=== PATIENT | male | born 1960 | race Caucasian/White ===

== ENCOUNTER 2017-10-14 21:15 | Emergency (ER) | payer BC ==
[2017-10-14 21:29] VITALS: RESP 18
[2017-10-14] MEDS ORDERED: HYDROmorphone 0.5 MG/0.5 ML SYRINGE IVP STA (22:56)
[2017-10-14] MEDS ORDERED: ONDANSETRON 4 MG/2 ML VIAL IVP STA (22:56)
[2017-10-14] MEDS ORDERED: SODIUM CHLORIDE 0.9% 500 ML IV STA (22:56)
--- NOTE | 2017-10-14 23:01 | ED ---
General Adult HPI - General Chief complaint: Abdominal Pain Stated complaint: Abd Pain Time Seen by Provider: 10/14/17 22:22 Source: patient, family, RN notes reviewed Mode of arrival: ambulatory Limitations: no limitations - History of Present Illness Initial comments: Chief complaint history of present illness is a 57-year-old male with on-again off-again discomfort from the left flank to the left groin area. Worse today. He gets up walks around feels nauseated no vomiting become somewhat diaphoretic. The pain goes away. - Related Data Home Medications Medication Instructions Recorded Confirmed Difluprednate [Durezol] 1 drop RIGHT EYE QID 10/14/17 10/14/17 Levothyroxine Sodium [Synthroid] 100 mcg PO DAILY 10/14/17 10/14/17 Vitamin A Acetate [Vitamin A] 10,000 unit PO DAILY 10/14/17 10/14/17 acetaZOLAMIDE [Diamox Sequels] 500 mg PO BID 10/14/17 10/14/17 Previous Rx's Medication Instructions Recorded Hydrocodone/Acetaminophen [Oak 1 each PO Q6HR PRN #10 tab 10/15/17 5-325] Ondansetron Odt [Zofran Odt] 4 mg PO Q8HR PRN #10 tab 10/15/17 Potassium Chloride ER [K-Dur 10] 10 meq PO DAILY #30 tab 10/15/17 Tamsulosin [Flomax] 0.4 mg PO DAILY #14 cap 10/15/17 Allergies Allergy/AdvReac Type Severity Reaction Status Date / Time No Known Allergies Allergy Verified 10/14/17 21:29 Review of Systems ROS Statement: Those systems with pertinent positive or pertinent negative responses have been documented in the HPI. review of systems no headache or visual acuity changes no shortness of breath or chest pain. He states his nausea and sweats when he has acute pain from the left flank to the left groin area. Decreased frequency of urination and decreased urine output lately. No neuro deficits. All systems are reviewed. Past medical problems hyperthyroidism treated with radiation. Surgeries include appendectomy and cataracts. Family history: Cancer and skin cancer. Patient was again reminded he should have colonoscopies. Patient denies ALLERGIES quit smoking 5 years ago drinks alcohol socially. ROS Other: All systems not noted in ROS Statement are negative. Past Medical History Past Medical History: Thyroid Disorder History of Any Multi-Drug Resistant Organisms: None Reported Past Surgical History: Appendectomy Additional Past Surgical History / Comment(s): RADIATION TO THYROID Past Psychological History: No Psychological Hx Reported Smoking Status: Former smoker Past Alcohol Use History: None Reported Past Drug Use History: None Reported General Exam - General Exam Comments Initial Comments: General: The patient is awake and alert, left flank pain radiating to the left groin and testicular area. With nausea and sweats at times. No signs shows temperature 97.5 pulse 61 respiratory rate 18 pulse ox R percent room air blood pressure 147 /73 Eye: Pupils are equal, round and reactive to light, extra-ocular movements are intact ; there is normal conjunctiva bilaterally. No signs of icterus. evidence of cataract surgery. Ears, nose, mouth and throat: There are moist mucous membranes Neck: The neck is supple, Cardiovascular: There is a regular rate and rhythm. No murmur, rub or gallop is appreciated. Respiratory: Lungs are clear to auscultation, respirations are non-labored, breath sounds are equal. No wheezes, stridor, rales, or rhonchi. Gastrointestinal: Soft, non-distended, non-tender abdomen without masses or organomegaly noted. There is no rebound or guarding present. left CVA tenderness Back: left CVA tenderness Musculoskeletal:normal upper and lower extremities. Limitations: no limitations Course Vital Signs 10/14/17 10/14/17 21:25 23:56 Temperature 97.5 F L Pulse Rate 61 75 Respiratory 18 18 Rate Blood Pressure 147/73 112/61 O2 Sat by Pulse 100 96 Oximetry Medical Decision Making - Medical Decision Making Medical decision-making. The patient is here because of symptoms suggestive of a left ureterolithiasis. The patient's labs show white count 10.1 hemoglobin 16 hematocrit of 49. Potassium is low at 3.1. He received Nazanin Dur 40 mg by mouth. BUN 16 creatinine 1.4 GFR 53. The patient's glucose is 113. Urine shows 10 red 2 whites. Culture pending. X-rays of the abdomen was done and reviewed by radiologist his impression is there is no sign of intestinal structure or pneumoperitoneum. Fecal pattern is normal. There are no pathologic calcifications over the kidneys. Lung bases are clear. Impression nonacute abdomen. As read by Dr. Lamb CT of the abdomen and pelvis was done without contrast. The significant findings include there is a 3 mm calculus in the left kidney. The ureters were not dilated. There is no hydronephrosis. There is however suggestion of a very minimal edema at the right renal hilum. The bladder distention. There is no evidence of a pelvic mass. No intestinal wall thickening. No dilated loops. No retroperitoneal adenopathy. Bony structures are intact. Impression. There is a small stone in the upper pole of the left kidney. No significant hydronephrosis or hydroureter to suggest obstruction. There is minimal edema of the left renal hilum that could relate to inflammatory process or recently passed stone. As read by Dr. Lamb The patient be given a strainer to strain the urine. He did go to the bathroom while in emergency room. Patient reports he is pain-free at this time. He does take Lasix and it was noted that his potassium was 3.1 he'll be advised to take potassium 10 medical's daily. Patient also advised to use medication for nausea, Flomax and pain medication if the pain persists. Otherwise follow-up with family physician return to emergency room. He'll also be given the name of the on-call urologists evening. She stated was finally able to urinate a large amount of urine. He may well pass a stone at that time. - Lab Data Result diagrams: 10/14/17 22:00 10/14/17 22:00 Lab Results 10/14/17 10/14/17 10/14/17 Range/Units 22:00 22:00 22:00 WBC 10.1 (3.8-10.6) k/uL RBC 5.02 (4.30-5.90) m/uL Hgb 16.1 (13.0-17.5) gm/dL Hct 49.7 (39.0-53.0) % MCV 99.0 (80.0-100.0) fL MCH 32.1 (25.0-35.0) pg MCHC 32.5 (31.0-37.0) g/dL RDW 13.6 (11.5-15.5) % Plt Count 218 (150-450) k/uL Neutrophils % 84 % Lymphocytes % 10 % Monocytes % 5 % Eosinophils % 1 % Basophils % 0 % Neutrophils # 8.5 H (1.3-7.7) k/uL Lymphocytes # 1.0 (1.0-4.8) k/uL Monocytes # 0.5 (0-1.0) k/uL Eosinophils # 0.1 (0-0.7) k/uL Basophils # 0.0 (0-0.2) k/uL Sodium 141 (137-145) mmol/L Potassium 3.1 L (3.5-5.1) mmol/L Chloride 108 H (98-107) mmol/L Carbon Dioxide 18 L (22-30) mmol/L Anion Gap 15 mmol/L BUN 16 (9-20) mg/dL Creatinine 1.40 H (0.66-1.25) mg/dL Est GFR (MDRD) Af Amer >60 (>60 ml/min/1.73 sqM) Est GFR (MDRD) Non-Af 53 (>60 ml/min/1.73 sqM) Glucose 113 H (74-99) mg/dL Calcium 9.4 (8.4-10.2) mg/dL Total Bilirubin 0.8 (0.2-1.3) mg/dL AST 24 (17-59) U/L ALT 31 (21-72) U/L Alkaline Phosphatase 78 (38-126) U/L Total Protein 7.6 (6.3-8.2) g/dL Albumin 4.7 (3.5-5.0) g/dL Amylase 103 (30-110) U/L Lipase 94 (23-300) U/L Urine Color Yellow Urine Appearance Cloudy (Clear) Urine pH 6.5 (5.0-8.0) Ur Specific [place] 1.018 (1.001-1.035) Urine Protein Trace H (Negative) Urine Glucose (UA) Negative (Negative) Urine Ketones 2+ H (Negative) Urine Blood Small H (Negative) Urine Nitrite Negative (Negative) Urine Bilirubin Negative (Negative) Urine Urobilinogen 2.0 (<2.0) mg/dL Ur Leukocyte Esterase Negative (Negative) Urine RBC 10 H (0-5) /hpf Urine WBC 2 (0-5) /hpf Ur Squamous Epith Cells <1 (0-4) /hpf Calcium Oxalate Crystal Few H (None) /hpf Urine Mucus Few H (None) /hpf Disposition Clinical Impression: Ureterolithiasis Disposition: HOME SELF-CARE Condition: Fair Instructions: Kidney Stones (ED), Renal Colic (ED), How to Strain Your Urine ( ED) Additional Instructions: Strain urine, increase water intake. Follow-up with family physician. If pain persists or returns follow-up with urology. Prescriptions: Hydrocodone/Acetaminophen [Oak 5-325] 1 each PO Q6HR PRN #10 tab PRN Reason: Pain Ondansetron Odt [Zofran Odt] 4 mg PO Q8HR PRN #10 tab PRN Reason: nausea vomiting Potassium Chloride ER [K-Dur 10] 10 meq PO DAILY #30 tab Tamsulosin [Flomax] 0.4 mg PO DAILY #14 cap Referrals: Faustino Rush MD [Primary Care Provider] - 1-2 days Sheldon Rivera MD [STAFF PHYSICIAN] - 1-2 days Time of Disposition: 01:22
[2017-10-14 23:16] LABS: Basophils % (A) 0 %; CHCM 33.5; Eosinophils # (A) 0.1 k/uL (0-0.7); Eosinophils % (A) 1 %; HCT 49.7 % (39.0-53.0); HDW 2.46; HGB 16.1 gm/dL (13.0-17.5); Luc # (Auto) 0.08; Luc % (Auto) 1; Lymphocytes % (A) 10 %; MCH 32.1 pg (25.0-35.0); MCHC 32.5 g/dL (31.0-37.0); Monocytes # (A) 0.5 k/uL (0-1.0); Monocytes % (A) 5 %; Neutrophils # (A) 8.5 k/uL (1.3-7.7); Neutrophils % (A) 84 %; RBC 5.02 m/uL (4.30-5.90); RDW 13.6 % (11.5-15.5); WBC 10.1 k/uL (3.8-10.6)
[2017-10-14 23:21] LABS: Appearance,Urine Cloudy (Clear); Bilirubin,Urine Negative (Negative); Calcium Oxalate Crystals,Urine Few /hpf; Glucose,Urine (UA) Negative (Negative); Ketones,Urine 2+ (Negative); Leukocyte Esterase,Urine Negative (Negative); Mucus,Urine Few /hpf; Nitrite,Urine Negative (Negative); PH, Urine 6.5 (5.0-8.0); Particle Count 4144; Protein,Urine Trace (Negative); RBC,Urine 10 /hpf (0-5); Specific Gravity,Urine 1.018 (1.001-1.035); Squamous Epithelial Cell,Urine <1 /hpf (0-4); UA Billing (MACRO vs. MICRO) MICRO; WBC,Urine 2 /hpf (0-5)
[2017-10-14 23:25] LABS: ALT 31 U/L (21-72); AST 24 U/L (17-59); Alkaline Phosphatase 78 U/L (38-126); Amylase 103 U/L (30-110); Anion Gap 15 mmol/L; Blood Urea Nitrogen 16 mg/dL (9-20); Calcium 9.4 mg/dL (8.4-10.2); Carbon Dioxide 18 mmol/L (22-30); Chloride 108 mmol/L (98-107); Glucose 113 mg/dL (74-99); Non-African American GFR(MDRD) 53 (>60 ml/min/1.73 sqM); Potassium 3.1 mmol/L (3.5-5.1); Sodium 141 mmol/L (137-145); Total Bilirubin 0.8 mg/dL (0.2-1.3); Total Protein 7.6 g/dL (6.3-8.2)
--- NOTE | 2017-10-15 00:19 | XR ---
EXAMINATION TYPE: XR abdomen 2V DATE OF EXAM: 10/15/2017 COMPARISON: NONE HISTORY: Left-sided pain TECHNIQUE: 2 views FINDINGS: There is no sign of intestinal obstruction or pneumoperitoneum. Fecal pattern is normal. Th ere are no pathologic calcifications over the kidneys. Lung bases are clear. IMPRESSION: Nonacute abdomen.
[2017-10-15] MEDS ORDERED: POTASSIUM CHLORIDE ER 20 MEQ TAB.ER PO STA (00:32)
--- NOTE | 2017-10-15 00:58 | CT ---
EXAMINATION TYPE: CT abdomen pelvis wo con DATE OF EXAM: 10/15/2017 COMPARISON: NONE HISTORY: No prior, left sided abd and flank pain, history of appendectomy, renal stone protocol CT DLP: 274.40 mGycm Automated exposure control for dose reduction was used. TECHNIQUE: Helical acquisition of images was performed from the lung bases through the pelvis. FINDINGS: Lung bases are clear. There is no pleural effusion. Liver spleen pancreas gallbladder appear normal. Bile ducts are not dilated. There is no adrenal mass. There is a 3 mm calculus in the left kidney. Th e ureters are not dilated. There is no hydronephrosis. There is however suggestion of very minimal ed johanna at the left renal hilum. The bladder distends smoothly. There is no evidence of a pelvic mass. I see no intestinal wall thickening. There are no dilated loops. There is no retroperitoneal adenopathy . Bony structures are intact. IMPRESSION: THERE IS A SMALL STONE IN THE UPPER POLE OF THE LEFT KIDNEY. I DO NOT SEE ANY SIGNIFICANT HYDRONEPHRO SIS OR HYDROURETER TO SUGGEST AN OBSTRUCTION. There is minimal edema at the left renal hilum that cou ld relate to inflammatory process or recently passed stone.
[2017-10-15 01:52] VITALS: BP 113/65; PULSE 66; TEMP 98.3
== END 2017-10-15 01:51 | disposition home or self-care (01) ==
LOC: EC 21:15
DX: N20.1 Calculus of ureter (principal); E03.9 Hypothyroidism, unspecified; Z90.49 Acquired absence of other specified parts of digestive tract; Z87.891 Personal history of nicotine dependence; Z79.899 Other long term (current) drug therapy
CPT/HCPCS: 36415; 80053; 82150; 83690; 85025; 81001; 87086; 74020; 74176; 99284; 96374; 96375; 96361; J2405; J1170

== ENCOUNTER 2018-03-12 16:17 | Emergency (ER) | payer BC ==
[2018-03-12] MEDS ORDERED: KETOROLAC 30 MG/ML 1 ML VIAL IVP STA (18:24)
[2018-03-12] MEDS ORDERED: ONDANSETRON 4 MG/2 ML VIAL IVP STA (18:24)
[2018-03-12] MEDS ORDERED: SODIUM CHLORIDE 0.9% 1,000 ML IV STA (18:24)
--- NOTE | 2018-03-12 18:39 | ED ---
General Adult HPI - General Chief complaint: Abdominal Pain Stated complaint: Poss Kidney Stone Time Seen by Provider: 03/12/18 18:19 Source: patient, RN notes reviewed Mode of arrival: ambulatory Limitations: no limitations - History of Present Illness Initial comments: Patient 57-year-old male significant past medical history for kidney stones, presented emergency room today with a chief complaint of right-sided flank pain that started yesterday. Patient does admit to pain that seems come and go. He states it is a sharp pain at times. Currently rating it a 5/10. Patient does admit to feeling nauseated at times. Patient states symptoms are similar to kidney stone that is had in the past. Patient states starts in the back radiates around to the right lower abdomen. Denies any other complaints or symptoms at this time. Patient denies any recent fever, chills, shortness of breath, chest pain, numbness or tingling, dysuria or hematuria, constipation or diarrhea, headaches or visual changes, or any other complaints. - Related Data Home Medications Medication Instructions Recorded Confirmed Levothyroxine Sodium [Synthroid] 100 mcg PO DAILY 10/14/17 03/12/18 Vitamin A Acetate [Vitamin A] 10,000 unit PO DAILY 10/14/17 03/12/18 acetaZOLAMIDE [Diamox Sequels] 500 mg PO BID 10/14/17 03/12/18 Brimonidine Tartrate [Alphagan P 1 drops RIGHT EYE BID 03/12/18 03/12/18 0.15% Ophth Soln] Timolol 0.5% Ophth Soln [Timoptic 1 drop RIGHT EYE BID 03/12/18 03/12/18 0.5% Ophth Soln] Previous Rx's Medication Instructions Recorded Hydrocodone/Acetaminophen [[place] 1 each PO Q6HR PRN #12 tab 03/12/18 5-325] Ibuprofen [Motrin] 600 mg PO Q6HR PRN #40 day 03/12/18 Ondansetron Odt [Zofran ODT] 4 mg PO Q8HR PRN #20 tab 03/12/18 Tamsulosin [Flomax] 0.4 mg PO DAILY #10 cap 03/12/18 Allergies Allergy/AdvReac Type Severity Reaction Status Date / Time No Known Allergies Allergy Verified 03/12/18 18:42 Review of Systems ROS Statement: Those systems with pertinent positive or pertinent negative responses have been documented in the HPI. ROS Other: All systems not noted in ROS Statement are negative. Past Medical History Past Medical History: Thyroid Disorder Additional Past Medical History / Comment(s): kidney stones History of Any Multi-Drug Resistant Organisms: None Reported Past Surgical History: Appendectomy Additional Past Surgical History / Comment(s): RADIATION TO THYROID Past Psychological History: No Psychological Hx Reported Smoking Status: Former smoker Past Alcohol Use History: None Reported Past Drug Use History: None Reported General Exam - General Exam Comments Initial Comments: General: The patient is awake and alert, in no distress, and does not appear acutely ill. Eye: Pupils are equal, round and reactive to light, extra-ocular movements are intact. No nystagmus. There is normal conjunctiva bilaterally. No signs of icterus. Ears, nose, mouth and throat: There are moist mucous membranes and no oral lesions. Neck: The neck is supple, there is no tenderness or JVD. Cardiovascular: There is a regular rate and rhythm. No murmur, rub or gallop is appreciated. Respiratory: Lungs are clear to auscultation, respirations are non-labored, breath sounds are equal. No wheezes, stridor, rales, or rhonchi. Gastrointestinal: Soft, non-distended, non-tender abdomen without masses or organomegaly noted. There is no rebound or guarding present. No CVA tenderness. Bowel sounds are unremarkable. Musculoskeletal: Normal ROM, no tenderness. Strength 5/5. Sensation intact. Pulses equal bilaterally 2+. Neurological: A&O x 3. CN II-XII intact, There are no obvious motor or sensory deficits. Coordination appears grossly intact. Speech is normal. Skin: Skin is warm and dry and no rashes or lesions are noted. Psychiatric: Cooperative, appropriate mood & affect, normal judgment. Limitations: no limitations Course Vital Signs 03/12/18 03/12/18 16:26 19:12 Temperature 98.3 F Pulse Rate 67 72 Respiratory 20 18 Rate Blood Pressure 117/62 116/66 O2 Sat by Pulse 99 100 Oximetry Medical Decision Making - Medical Decision Making Patient reexamined at this time shows no signs of distress. His labs been reviewed. Patient's CT of the abdomen does show 4 mm stone in the right UVJ. Results were discussed with the patient. Patient will be discharged with prescriptions for pain medication, Flomax, Zofran. Advised to follow-up the family doctor over the next 2 days return here to the emergency room if any symptoms increase worsen. - Lab Data Result diagrams: 03/12/18 18:44 03/12/18 18:44 Lab Results 03/12/18 03/12/18 03/12/18 Range/Units 18:44 18:44 18:44 WBC 7.8 (3.8-10.6) k/uL RBC 5.21 (4.30-5.90) m/uL Hgb 16.5 (13.0-17.5) gm/dL Hct 49.6 (39.0-53.0) % MCV 95.1 (80.0-100.0) fL MCH 31.7 (25.0-35.0) pg MCHC 33.4 (31.0-37.0) g/dL RDW 12.4 (11.5-15.5) % Plt Count 213 (150-450) k/uL Neutrophils % 77 % Lymphocytes % 15 % Monocytes % 6 % Eosinophils % 2 % Basophils % 0 % Neutrophils # 6.0 (1.3-7.7) k/uL Lymphocytes # 1.1 (1.0-4.8) k/uL Monocytes # 0.5 (0-1.0) k/uL Eosinophils # 0.1 (0-0.7) k/uL Basophils # 0.0 (0-0.2) k/uL Sodium 140 (137-145) mmol/L Potassium 3.8 (3.5-5.1) mmol/L Chloride 105 (98-107) mmol/L Carbon Dioxide 20 L (22-30) mmol/L Anion Gap 15 mmol/L BUN 15 (9-20) mg/dL Creatinine 1.70 H (0.66-1.25) mg/dL Est GFR (CKD-EPI)AfAm 52 (>60 ml/min/1.73 sqM) Est GFR (CKD-EPI)NonAf 45 (>60 ml/min/1.73 sqM) Glucose 94 (74-99) mg/dL Calcium 9.1 (8.4-10.2) mg/dL Total Bilirubin 1.4 H (0.2-1.3) mg/dL AST 22 (17-59) U/L ALT 20 L (21-72) U/L Alkaline Phosphatase 71 (38-126) U/L Total Protein 7.1 (6.3-8.2) g/dL Albumin 4.4 (3.5-5.0) g/dL Amylase 106 (30-110) U/L Lipase 68 (23-300) U/L Urine Color Yellow Urine Appearance Clear (Clear) Urine pH 7.0 (5.0-8.0) Ur Specific [place] 1.011 (1.001-1.035) Urine Protein Negative (Negative) Urine Glucose (UA) Negative (Negative) Urine Ketones 2+ H (Negative) Urine Blood Trace H (Negative) Urine Nitrite Negative (Negative) Urine Bilirubin Negative (Negative) Urine Urobilinogen <2.0 (<2.0) mg/dL Ur Leukocyte Esterase Negative (Negative) Urine RBC 1 (0-5) /hpf Urine WBC 3 (0-5) /hpf Ur Squamous Epith Cells <1 (0-4) /hpf Amorphous Sediment Rare H (None) /hpf Urine Bacteria Rare H (None) /hpf Disposition Clinical Impression: Kidney stone on right side Disposition: HOME SELF-CARE Condition: Good Instructions: Kidney Stones (ED) Additional Instructions: Please use medication as discussed. Please follow-up with family doctor in the next 2 days of symptoms have not improved. Please return to emergency room if the symptoms increase or worsen or for any other concerns. Prescriptions: Hydrocodone/Acetaminophen [[place] 5-325] 1 each PO Q6HR PRN #12 tab PRN Reason: Pain Ibuprofen [Motrin] 600 mg PO Q6HR PRN #40 day PRN Reason: Pain Ondansetron Odt [Zofran ODT] 4 mg PO Q8HR PRN #20 tab PRN Reason: Nausea Tamsulosin [Flomax] 0.4 mg PO DAILY #10 cap Is patient prescribed a controlled substance at d/c from ED?: Yes If prescribed controlled substance>3 days was MAPS reviewed?: No Referrals: Faustino Rush MD [Primary Care Provider] - 1-2 days Time of Disposition: 20:02
[2018-03-12 18:58] LABS: Basophils % (A) 0 %; Eosinophils # (A) 0.1 k/uL (0-0.7); Eosinophils % (A) 2 %; HCT 49.6 % (39.0-53.0); HGB 16.5 gm/dL (13.0-17.5); Lymphocytes # (A) 1.1 k/uL (1.0-4.8); Lymphocytes % (A) 15 %; MCH 31.7 pg (25.0-35.0); MCHC 33.4 g/dL (31.0-37.0); MCV 95.1 fL (80.0-100.0); Mean Platelet Volume 7.2; Monocytes # (A) 0.5 k/uL (0-1.0); Monocytes % (A) 6 %; Neutrophils % (A) 77 %; Platelet Count 213 k/uL (150-450); RBC 5.21 m/uL (4.30-5.90); RDW 12.4 % (11.5-15.5); WBC 7.8 k/uL (3.8-10.6)
[2018-03-12 19:06] LABS: Amorphous Sediment,Urine Rare /hpf; Appearance,Urine Clear (Clear); Bacteria,Urine Rare /hpf; Bilirubin,Urine Negative (Negative); Blood,Urine Trace (Negative); Color,Urine Yellow; Glucose,Urine (UA) Negative (Negative); Ketones,Urine 2+ (Negative); Leukocyte Esterase,Urine Negative (Negative); Nitrite,Urine Negative (Negative); Protein,Urine Negative (Negative); RBC,Urine 1 /hpf (0-5); Specific Gravity,Urine 1.011 (1.001-1.035); Squamous Epithelial Cell,Urine <1 /hpf (0-4); Urobilinogen,Urine <2.0 mg/dL (<2.0); WBC,Urine 3 /hpf (0-5)
[2018-03-12 19:09] LABS: Albumin 4.4 g/dL (3.5-5.0); Calcium 9.1 mg/dL (8.4-10.2); Potassium 3.8 mmol/L (3.5-5.1); Total Bilirubin 1.4 mg/dL (0.2-1.3); Total Protein 7.1 g/dL (6.3-8.2)
--- NOTE | 2018-03-12 19:13 | XR ---
EXAMINATION TYPE: XR KUB DATE OF EXAM: 03/12/2018 COMPARISON: 10/15/2017 HISTORY: Right flank pain TECHNIQUE: 2 views FINDINGS: I see no sign of intestinal obstruction or pneumoperitoneum. Bowel gas pattern is normal. L ortiz bases are clear. There are no pathologic calcifications. Fecal pattern is normal. IMPRESSION: Nonacute abdomen. No change.
--- NOTE | 2018-03-12 19:51 | CT ---
EXAMINATION TYPE: CT abdomen pelvis wo con DATE OF EXAM: 03/12/2018 COMPARISON: 10/15/2017 HISTORY: Right flank pain. History of stones. CT DLP: 253.6 mGycm Automated exposure control for dose reduction was used. TECHNIQUE: Helical acquisition of images was performed from the lung bases through the pelvis. FINDINGS: The lung bases are clear. There is no pleural effusion. Heart size is normal. Liver spleen pancreas appear normal. Gallbladder appears normal. Bile ducts are not dilated. There is right-sided hydronephrosis and hydroureter. There is a 4 mm calculus at the right ureteroves ical junction. Bladder distends smoothly. There is right-sided perinephric edema. Left kidney has nor mal size and contour with no sign of obstruction. There is a 2 mm calculus in the posterior left kidn ey. There is no retroperitoneal adenopathy. There is no ascites. I see no intestinal wall thickening. There are no dilated loops. Appendix is not seen. There is no sign of appendicitis. Bony structures appear normal. IMPRESSION: SMALL CALCULUS AT THE RIGHT URETEROVESICAL JUNCTION WITH RIGHT-SIDED HYDRONEPHROSIS AND HYDROURETER. PERINEPHRIC EDEMA. OBSTRUCTION IS NEW COMPARED TO OLD EXAM. SMALL NONOBSTRUCTING LEFT RENAL CALCULUS.
[2018-03-12 20:24] VITALS: BP 123/78; PULSE 68; RESP 16; TEMP 98
== END 2018-03-12 20:24 | disposition home or self-care (01) ==
LOC: EC 16:17
DX: N20.0 Calculus of kidney (principal); Z87.442 Personal history of urinary calculi; E07.9 Disorder of thyroid, unspecified; Z87.891 Personal history of nicotine dependence; Z79.899 Other long term (current) drug therapy; Z90.49 Acquired absence of other specified parts of digestive tract
CPT/HCPCS: 36415; 80053; 82150; 83690; 85025; 81001; 74018; 74176; 99284; 96374; 96375; 96361; J2405; J1885

== ENCOUNTER 2019-04-27 17:20 | Emergency (ER) | payer BC ==
[2019-04-27] MEDS ORDERED: TOPICAL SKIN ADHESIVE 1 EACH AMP TOPICAL ONE (18:37)
[2019-04-27] MEDS ORDERED: DIPH,PERTUS(ACELL)TETVAC-LF 0.5 ML VIAL IM ONE (18:37)
[2019-04-27 19:16] VITALS: BP 134/71; PULSE 59; RESP 16; TEMP 98.1
--- NOTE | 2019-04-27 19:23 | ED ---
General Adult HPI - General Chief complaint: Head Injury Stated complaint: lac top of head Time Seen by Provider: 04/27/19 17:48 Source: patient, RN notes reviewed, old records reviewed Mode of arrival: ambulatory Limitations: no limitations - History of Present Illness Initial comments: 58-year-old male patient, no pertinent past medical history, no use of blood thinners presents ED after minor trauma to skull which occured at 11am. Reports that a metal arm from a seated plantar may contact to the apex of his skull. Patient was a has a abrasion that region. Presents to ED to make sure he did not need stitches. Patient denies any loss of consciousness. Denies any pain in neck. Denies any changes in vision. Denies any nausea vomiting diarrhea. Denies any other complaints. Systemic: Pt denies fatigue, fever/chills, rash. Pt denies weakness, night sweats, weight loss. Neuro: Pt denies headache, visual disturbances, syncope or pre-syncope. HEENT: Pt denies ocular discharge or irritation, otalgia, rhinorrhea, pharyngitis or notable lymphadenopathy. Cardiopulmonary: Pt denies chest pain, SOB, heart palpitations, dyspnea on exertion. Abdominal/GI: Pt denies abdominal pain, n/v/d. : Pt denies dysuria, burning w/ urination, frequency/urgency. Denies new onset urinary or bowel incontinence. MSK: Pt denies myalgia, loss of strength or function in extremities. Neuro: Pt denies new onset weakness, paresthesias. - Related Data Home Medications Medication Instructions Recorded Confirmed Levothyroxine Sodium [Synthroid] 100 mcg PO DAILY 10/14/17 03/12/18 Vitamin A Acetate [Vitamin A] 10,000 unit PO DAILY 10/14/17 03/12/18 acetaZOLAMIDE [Diamox Sequels] 500 mg PO BID 10/14/17 03/12/18 Brimonidine Tartrate [Alphagan P 1 drops RIGHT EYE BID 03/12/18 03/12/18 0.15% Ophth Soln] Timolol 0.5% Ophth Soln [Timoptic 1 drop RIGHT EYE BID 03/12/18 03/12/18 0.5% Ophth Soln] Previous Rx's Medication Instructions Recorded Hydrocodone/Acetaminophen [[place] 1 each PO Q6HR PRN #12 tab 03/12/18 5-325] Ibuprofen [Motrin] 600 mg PO Q6HR PRN #40 day 03/12/18 Ondansetron Odt [Zofran ODT] 4 mg PO Q8HR PRN #20 tab 03/12/18 Tamsulosin [Flomax] 0.4 mg PO DAILY #10 cap 03/12/18 Allergies Allergy/AdvReac Type Severity Reaction Status Date / Time No Known Allergies Allergy Verified 04/27/19 17:43 Review of Systems ROS Statement: Those systems with pertinent positive or pertinent negative responses have been documented in the HPI. ROS Other: All systems not noted in ROS Statement are negative. Past Medical History Past Medical History: Thyroid Disorder Additional Past Medical History / Comment(s): kidney stones History of Any Multi-Drug Resistant Organisms: None Reported Past Surgical History: Appendectomy Additional Past Surgical History / Comment(s): RADIATION TO THYROID Past Psychological History: No Psychological Hx Reported Smoking Status: Former smoker Past Alcohol Use History: Rare Past Drug Use History: None Reported General Exam - General Exam Comments Initial Comments: Constitutional: NAD, AOX3, Pt has pleasant affect. HEENT: NC/AT, trachea midline, neck supple, no lymphadenopathy. Posterior pharynx non erythematous, without exudates. External ears appear normal, without discharge. Mucous membranes moist. Eyes PERRLA, EOM intact. There is no scleral icterus. No pallor noted. Cardiopulmonary: RRR, no murmurs, rubs or gallops, no JVD noted. Lungs CTAB in anterior and posterior fisher. No peripheral edema. Abdominal exam: Abdomen soft and non-distended. Abdomen non-tender to palpation in all 4 quadrants. Bowel sounds active in LLQ. No hepatosplenomegaly. No ecchymosis Neuro: CN II-XII intact. No nuchal rigidity. No raccon eyes, no mcgregor sign, no hemotympanum. No cervical spinal tenderness. MSK: No posterior calf tenderness bilaterally, homans sign negative bilaterally. Posterior tibialis and radial pulse +2 bilaterally. Sensation intact in upper and lower extremities. Full active ROM in upper and lower extremities, 5/5 stregnth. Small abrasion noted at apex of skull, cleaned with betadine. Closed with exofin. Limitations: no limitations Course Vital Signs 04/27/19 04/27/19 04/27/19 17:41 19:15 19:26 Temperature 98.6 F 98.1 F 98.1 F Pulse Rate 63 59 L 59 L Respiratory 18 16 16 Rate Blood Pressure 138/77 134/71 134/71 O2 Sat by Pulse 99 97 97 Oximetry Medical Decision Making - Medical Decision Making 58-year-old male patient, no pertinent past medical history, no use of blood thinners presents ED after minor trauma to skull which occured at 11am. Reports that a metal arm from a seated plantar may contact to the apex of his skull. Patient was a has a abrasion that region. Presents to ED to make sure he did not need stitches. Patient denies any loss of consciousness. Denies any pain in neck. Denies any changes in vision. Denies any nausea vomiting diarrhea. Denies any other complaints. Patient vital signs stable, afebrile. Physical exam displayed: Small abrasion noted at apex of skull, cleaned with betadine. Closed with exofin. CN II-XII intact. No nuchal rigidity. No raccon eyes, no mcgregor sign, no hemotympanum. No cervical spinal tenderness. Shared decision making, patient does not wish to have CT . Abrasion cleaned Betadine, closed with exofin. Patient will discharge, patient follow up with primary care provider in 2 days. Patient returned urinary condition worsens. Case discussed with Dr. Meehan. Tetanus updated. Disposition Clinical Impression: Abrasion Disposition: HOME SELF-CARE Condition: Stable Instructions (If sedation given, give patient instructions): Abrasion (ED) Additional Instructions: Patient to adhere to previously discussed treatment plan and will take medication(s) as directed. Patient to follow up with PCP in 1-2 days. Patient to return to ED if symptoms do not improve. Follow up with Primary care provider in 1-2 days. Return to ER if condition worsens in anyway. Please monitor for signs and symptoms of infection including: redness, warmth, drainage, discharge. Please return to ED if these signs or symptoms occur, new signs or symptoms develop or if condition worsens in anyway. Is patient prescribed a controlled substance at d/c from ED?: No Referrals: Faustino Rush MD [Primary Care Provider] - 1-2 days
== END 2019-04-27 19:26 | disposition home or self-care (01) ==
LOC: EC 17:20
DX: S00.01XA Abrasion of scalp, initial encounter (principal); E07.9 Disorder of thyroid, unspecified; Z87.891 Personal history of nicotine dependence; Z79.890 Hormone replacement therapy; Z79.899 Other long term (current) drug therapy; Z23 Encounter for immunization; W20.8XXA Other cause of strike by thrown, projected or falling object, initial encounter
CPT/HCPCS: 12001; 90471; 90715; 99283